=== PATIENT | female | born 1950 | race Two or more races ===

== ENCOUNTER 2018-09-26 07:58 | Outpatient (CLI) | payer OTHER | END 2018-09-26 11:20 | disposition home or self-care (01) | LOC: SONOGRAMA 07:58 | DX: E04.2 Nontoxic multinodular goiter (principal) ==

== ENCOUNTER 2020-08-28 12:10 | Emergency (ER) | payer OTHER ==
[~2020-08-28] VITALS: Ht 160 cm; Wt 113.4 kg
[2020-08-28] MEDS ORDERED: GLIPIZIDE10 MG PO (12:22)
[2020-08-28] MEDS ORDERED: ATORVASTATIN CA40 MG PO (12:22)
[2020-08-28] MEDS ORDERED: HYDROCHLOROTHIA25 MG PO (12:22)
[2020-08-28] MEDS ORDERED: GABAPENTIN300 M2 PO (12:22)
[2020-08-28] MEDS ORDERED: FERROUS SULFAT325 MG PO (12:22)
[2020-08-28] MEDS ORDERED: CILOSTAZOL100 MG PO (12:22)
[2020-08-28] MEDS ORDERED: JANUVIA100 MG PO (12:22)
[2020-08-28] MEDS ORDERED: METFORMIN HCL1000 M3 PO (12:23)
== END 2020-08-28 14:49 | disposition home or self-care (01) ==
LOC: ER 12:10
DX: R10.814 Left lower quadrant abdominal tenderness (principal)

== ENCOUNTER 2022-12-23 09:53 | Emergency (ER) | payer OTHER ==
[~2022-12-23] VITALS: Ht 152.4 cm; Wt 99.8 kg
[~2022-12-23 09:53] MED LIST: ATORVASTATIN CA40 MG PO; CILOSTAZOL100 MG PO; FERROUS SULFAT325 MG PO; GABAPENTIN300 M2 PO; GLIPIZIDE10 MG PO; HYDROCHLOROTHIA25 MG PO; JANUVIA100 MG PO; METFORMIN HCL1000 M3 PO
== END 2022-12-23 12:55 | disposition home or self-care (01) ==
LOC: ER 09:53
DX: S49.82XA Other specified injuries of left shoulder and upper arm, initial encounter (principal); W01.0XXA Fall on same level from slipping, tripping and stumbling without subsequent striking against object, initial encounter; Y93.89 Activity, other specified; Y92.018 Other place in single-family (private) house as the place of occurrence of the external cause; S89.82XA Other specified injuries of left lower leg, initial encounter; M17.12 Unilateral primary osteoarthritis, left knee
CPT/HCPCS: 71110; 73030; 73060; 73560; 96372; 99284; J1885

== ENCOUNTER 2023-12-21 10:06 | Emergency (ER) | payer OTHER ==
[~2023-12-21] VITALS: Ht 160 cm; Wt 95.3 kg
[2023-12-21 10:22] VITALS: BP 131/67; O2SAT 99
[2023-12-21] MEDS ORDERED: KETOROLAC TROMETHAMINE 60 MG VIAL IM STA (10:42)
== END 2023-12-21 10:51 | disposition home or self-care (01) ==
LOC: ER 10:08
DX: M25.512 Pain in left shoulder (principal); E78.00 Pure hypercholesterolemia, unspecified; I10 Essential (primary) hypertension; E11.9 Type 2 diabetes mellitus without complications; Z79.84 Long term (current) use of oral hypoglycemic drugs
CPT/HCPCS: 96372; 99282; J1885

== ENCOUNTER 2025-01-21 19:15 | Emergency (ER) | payer OTHER ==
[~2025-01-21] VITALS: Ht 160 cm; Wt 94.8 kg
[2025-01-21] MEDS ORDERED: DEXAMETHASONE SODIUM PHOSPHATE 4 MG/ML VIAL IM STA (20:06)
[2025-01-21] MEDS ORDERED: CEFTRIAXONE SODIUM 1,000 MG VIAL IM STA (20:07)
[2025-01-21] MEDS ORDERED: LORATADINE 10 MG TABLET PO ONE (20:15)
[2025-01-21] MEDS ORDERED: GUAIFENESIN 200 MG/10 ML BLIST.PACK PO ONE ×2 (20:15→22:06)
[2025-01-21] MEDS ORDERED: ACETAMINOPHEN 500 MG GEL..CAP PO ONE ×2 (20:15→22:05)
[2025-01-21] MEDS ORDERED: CEFTRIAXONE SODIUM 1,000 MG VIAL ONE (22:06)
[2025-01-21] MEDS ORDERED: DEXAMETHASONE SODIUM PHOSPHATE 4 MG/ML VIAL ONE (22:06)
[2025-01-21 22:52] LABS: COVID-19 AG NEGATIVE (NEGATIVE)
[2025-01-21 23:05] LABS: BASO % 0.3 % (0.1-1.2); EOS # 0.07 (0.04-0.54); EOS % 0.6 % (0.7-7.0); LYMPH # 1.33 (1.18-3.74); LYMPH % 10.6 % (19.3-53.1); MEAN PLATELET VOLUME 10.80 fl (9.4-12.4); MONO # 0.69 (0.24-0.82); MONO % 5.5 % (4.7-12.5); NEUT # 10.36 (1.56-6.13); NEUT % 82.6 % (34.0-71.1); RED CELL DISTRIBUTION WIDTH 15.3 % (11.6-14.4)
[2025-01-22] MEDS ORDERED: BENZONATATE200 M1 PO (01:57)
[2025-01-22] MEDS ORDERED: ZYRTEC10 MG PO (01:57)
[2025-01-22] MEDS ORDERED: ZITHROMAX500 MG PO (01:58)
== END 2025-01-22 01:55 | disposition home or self-care (01) ==
LOC: ER 19:15
PROVIDERS: General Practice
DX: J06.9 Acute upper respiratory infection, unspecified (principal); I10 Essential (primary) hypertension; E11.9 Type 2 diabetes mellitus without complications; Z79.84 Long term (current) use of oral hypoglycemic drugs
CPT/HCPCS: 36415; 96372; 99282; J0696; J1100